=== PATIENT | male | born 1975 | race Caucasian/White ===

== ENCOUNTER 2019-05-28 01:49 | Emergency (ER) | payer BC ==
[~2019-05-28] VITALS: Ht 172.7 cm; Wt 84.1 kg
[2019-05-28 01:50] VITALS: BP 165/102
[2019-05-28] MEDS ORDERED: B-COCAP8 PO (01:57)
[2019-05-28] MEDS ORDERED: CHOL100029 PO (01:57)
[2019-05-28] MEDS ORDERED: ZOLO25TA PO (01:57)
[2019-05-28] MEDS ORDERED: LISI10TA4 PO (01:57)
[2019-05-28] MEDS ORDERED: GABA-1171 PO (01:57)
[2019-05-28 02:37] LABS: BASO % 0.3 % (0.0-1.0); EOS # 0.1 10^3/uL (0.0-0.5); EOS % 0.8 % (0.0-3.0); HEMOGLOBIN 16.8 g/dl (13.5-17.5); LYMPH % 8.2 % (24.0-44.0); MEAN CORPUSCULAR HEMOGLOBIN 30.9 pg (27.0-33.0); MEAN CORPUSCULAR HGB CONC 35.7 g/dl (32.0-36.5); MEAN CORPUSCULAR VOLUME 86.6 fl (80.0-96.0); MONO # 0.6 10^3/uL (0.0-0.8); MONO % 5.1 % (0.0-5.0); NEUTROPHILS # 10.1 10^3/uL (1.5-8.5); NEUTROPHILS % 84.9 % (36.0-66.0); PLATELET COUNT, AUTOMATED 229 10^3/uL (150-450); RED BLOOD COUNT 5.43 10^6/uL (4.30-6.10); WHITE BLOOD COUNT 11.9 10^3/uL (4.0-10.0)
[2019-05-28] MEDS ORDERED: ENTY1INJ IV (02:57)
[2019-05-28 03:04] LABS: BLOOD UREA NITROGEN 15 MG/DL (7-18); CALCIUM LEVEL 9.8 MG/DL (8.5-10.1); CARBON DIOXIDE LEVEL 29 MEQ/L (21-32); CHLORIDE LEVEL 104 MEQ/L (98-107); CREATININE FOR GFR 1.05 MG/DL (0.70-1.30); GLOMERULAR FILTRATION RATE > 60.0 (>60); GLUCOSE, FASTING 126 MG/DL (70-100); POTASSIUM SERUM 4.2 MEQ/L (3.5-5.1); SODIUM LEVEL 141 MEQ/L (136-145)
[2019-05-28] MEDS ORDERED: GASTROGRAFIN SOLUTION 30ML (Q9963) As Ordered ONE (03:07)
[2019-05-28] MEDS ORDERED: ISOVUE-370 76% 100ML VIAL (Q9967) As Ordered ONE (03:21)
[2019-05-28] MEDS ORDERED: GASTROGRAFIN SOLUTION 30ML PO SCH (03:30)
[2019-05-28 03:39] LABS: ALBUMIN 4.4 GM/DL (3.2-5.2); ALT/SGPT 76 U/L (12-78); BILIRUBIN,DIRECT 0.3 MG/DL (0.0-0.2); BILIRUBIN,TOTAL 1.2 MG/DL (0.2-1.0); LIPASE 118 U/L (73-393); TOTAL PROTEIN 8.5 GM/DL (6.4-8.2)
== END 2019-05-28 04:20 | disposition left against medical advice (07) ==
LOC: M ED 01:49
DX: R10.9 Unspecified abdominal pain (principal); Z53.21 Procedure and treatment not carried out due to patient leaving prior to being seen by health care provider